=== PATIENT | male | born 1955 | race Caucasian/White ===

== ENCOUNTER 2016-10-12 00:13 | Emergency (ER) | payer OTHER ==
[2016-10-12 01:30] VITALS: BP 129/77; PULSE 73; TEMP 97.9; BMI 29.5
--- NOTE | 2016-10-12 01:30 | PDOC ---
History of Present Illness - General Chief Complaint: Eye Problem Stated Complaint: EYE PROBLEM Time Seen by Provider: 10/12/16 01:29 History Source: Patient Exam Limitations: No Limitations - History of Present Illness Initial Comments: CHIEF COMPLAINT: 61 y/o afebrile male with no significant PMH c/o b/l eye pain and swelling. HISTORY OF PRESENT ILLNESS: He states his eyes are red and burning. He was seen by his doctor yesterday and given erythromycin drops. He states the skin under his eyes is now swollen and painful. He denies all other symptoms including changes in vision. He does wear glasses. Vital signs on arrival are within normal limits. REVIEW OF SYSTEMS: GENERAL/CONSTITUTIONAL: No fever/chills. No weakness. No weight change. HEAD, EYES, EARS, NOSE AND THROAT: No change in vision. +red, itchy, swollen eyes. MUSCULOSKELETAL: No joint or muscle swelling or pain. No neck or back pain. SKIN: No rash or easy bruising. NEUROLOGIC: No headache, vertigo, loss of consciousness, or loss of sensation. PHYSICAL EXAM: GENERAL: The patient is awake, alert, and fully oriented, in no acute distress. HEAD: Normal with no signs of trauma. ENT: Pupils equal, round and reactive to light, extraocular movements intact, sclera anicteric, conjunctiva injected b/l. No pain with EOMs. Well circumscrubed, hard, non fluctuant edematous to b/l infraorbital regions R>L that are TTP. No ptosis or proptosis. NEUROLOGICAL: Normal speech, normal gait. CN II-XII grossly intact. SKIN: Warm, dry, normal turgor, no rashes or lesions noted. Past History - Past Medical History Allergies/Adverse Reactions: Allergies Allergy/AdvReac Type Severity Reaction Status Date / Time No Known Allergies Allergy Verified 10/12/16 01:25 Home Medications: Ambulatory Orders Ibuprofen 600 mg PO QID PRN #30 tablet 04/08/16 - Immunization History Immunization Up to Date: Yes - Psycho/Social/Smoking Cessation Hx Anxiety: No Suicidal Ideation: No Smoking History: Never smoked Have you smoked in the past 12 months: No Number of Cigarettes Smoked Daily: 0 Cigars Per Day: 0 Hx Alcohol Use: No Drug/Substance Use Hx: No Substance Use Type: None *Physical Exam - Vital Signs Last Vital Signs Temp Pulse Resp BP Pulse Ox 97.9 F 73 18 129/77 98 10/12/16 01:25 10/12/16 01:25 10/12/16 01:25 10/12/16 01:25 10/12/16 01:25 Medical Decision Making - Medical Decision Making A/P: 61 y/o afebrile male with conjunctivits and b/l external hordeolums. Encouraged the patient to continue with eye drops as prescribed, apply hot compresses to hordeolums multiple times per day to help with swelling/pain, and f/u with either his eye doctor or Dr. Butler by the end of the week. The patient verbalizes understanding of all instructions, has no further questions and is awaiting discharge. *DC/Admit/Observation/Transfer Diagnosis at time of Disposition: Hordeolum externum (stye) Qualifiers: Eyelid: lower - Discharge Dispostion Disposition: HOME Condition at time of disposition: Good - Referrals Referrals: Sheyla Lombardi MD [Primary Care Provider] - Derrell Butler MD [Staff Physician] - - Patient Instructions Printed Discharge Instructions: DI for Conjunctivitis, DI for Hordeolum Additional Instructions: Discharge instructions: -Continue using the eye drops as prescribed -Apply warm/hot compressed to lower eyelids to help with pain/swelling -Please call your eye doctor (or Dr. Butler) tomorrow to schedule a follow up appointment for this week -Return to the ER with any worsening or concerning symptoms
== END 2016-10-12 02:47 | disposition home or self-care (01) ==
LOC: JER 00:13
DX: H10.33 Unspecified acute conjunctivitis, bilateral (principal); H00.015 Hordeolum externum left lower eyelid; H00.012 Hordeolum externum right lower eyelid
CPT/HCPCS: 99281-25

== ENCOUNTER 2018-07-30 18:09 | Emergency (ER) | payer OTHER ==
[2018-07-30 18:20] VITALS: BP 154/101; PULSE 84; TEMP 98.5; BMI 29.2
--- NOTE | 2018-07-30 19:22 | PDOC ---
History of Present Illness - General Chief Complaint: Pain Stated Complaint: LT LEG PAIN Time Seen by Provider: 07/30/18 19:07 History Source: Patient Exam Limitations: Clinical Condition - History of Present Illness Initial Comments: 07/30/18 19:16 Patient with no significant past medical history present with complaint of pain to left lower back and hip radiating down to left thigh which has been intermittent for 2 weeks now. 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 Patient reported occasional weakness and left leg. Patient denies any injury or fall to back or hip. Timing/Duration: other (2 weeks) Past History - Past Medical History Allergies/Adverse Reactions: Allergies Allergy/AdvReac Type Severity Reaction Status Date / Time No Known Allergies Allergy Verified 07/30/18 18:20 Home Medications: Ambulatory Orders Methocarbamol [Robaxin -] 500 mg PO BID PRN #14 tablet 07/30/18 Naproxen 500 mg PO BID PRN #20 tablet 07/30/18 Omeprazole 20 mg PO DAILY #30 capsule. 07/30/18 COPD: No - Immunization History Immunization Up to Date: Yes - Suicide/Smoking/Psychosocial Hx Smoking History: Never smoked Have you smoked in the past 12 months: No Number of Cigarettes Smoked Daily: 0 Cigars Per Day: 0 Hx Alcohol Use: No Drug/Substance Use Hx: No Substance Use Type: None Review of Systems - Review of Systems Able to Perform ROS?: Yes Is the patient limited [place] proficient: No Constitutional: No: Weakness HEENTM: No: Recent change in vision Respiratory: No: Symptoms reported Cardiac (ROS): No: Symptoms Reported ABD/GI: No: Symptoms Reported Musculoskeletal: Yes: Back Pain (left side), Muscle Pain (left hip going down thigh). No: Muscle Weakness Neurological: No: Numbness, Paresthesia, Tingling All Other Systems: Reviewed and Negative *Physical Exam - Vital Signs Last Vital Signs Temp Pulse Resp BP Pulse Ox 98.5 F 84 18 154/101 H 96 07/30/18 18:18 07/30/18 18:18 07/30/18 18:18 07/30/18 18:18 07/30/18 18:18 - Physical Exam Comments: 07/30/18 19:19 GENERAL: Well developed, well nourished. Awake and alert. No acute distress. CARDIOVASCULAR: Regular rate and rhythm. No murmurs, rubs, or gallops. PULMONARY: No evidence of respiratory distress. Lungs clear to auscultation bilaterally. No wheezing, rales or rhonchi. ABDOMINAL: Soft. Non-tender. Non-distended. No rebound or guarding. No organomegaly. Normoactive bowel sounds MUSCULOSKELETAL : Mild tenderness to left paravertebral over lower sacral spine and posterior left thigh. No bony deformities . Negative straight leg test of left lower extremity. EXTREMITIES: No cyanosis. No clubbing. No edema. No calf tenderness. SKIN: Warm and dry. Normal capillary refill. No rashes. No jaundice. NEUROLOGICAL: Alert, awake, appropriate. No motor deficits in the lower extremities. Gait is normal without ataxia. PSYCHIATRIC: Cooperative. Good eye contact. Appropriate mood and affect. General Appearance: Yes: Nourished, Appropriately Dressed. No: Apparent Distress Moderate Sedation - Procedure Monitoring Vital Signs: Procedure Monitoring Vital Signs Temperature 98.5 F 07/30/18 18:18 Pulse Rate 84 07/30/18 18:18 Respiratory Rate 18 07/30/18 18:18 Blood Pressure 154/101 H 07/30/18 18:18 O2 Sat by Pulse Oximetry (%) 96 07/30/18 18:18 ED Treatment Course - RADIOLOGY Radiology Studies Ordered: Category Date Time Status HIP & PELVIS-LEFT [RAD] Stat Radiology 07/30/18 19:12 Ordered SPINE-LUMBAR SACRAL [RAD] Stat Radiology 07/30/18 19:12 Ordered Medical Decision Making - Medical Decision Making 07/30/18 19:21 Patient with no significant past medical history present with complaint of pain to left lower back and hip radiating down to left thigh which has been intermittent for 2 weeks now Exam significant for Mild tenderness to left paravertebral over lower sacral spine and posterior left thigh. No bony deformities . Negative straight leg test of left lower extremity.X-ray of lumbosacral and left hip ordered. Symptoms likely sciatica. Patient be discharged home on NSAIDs and muscle relaxer with orthopedist follow-up if negative x-ray. 07/30/18 19:21 07/30/18 20:14 X-ray of lumbosacral and left hip and negative for acute fracture or dislocation. Patient is stable for discharge on NSAIDs and muscle relaxer with orthopedics follow-up. Patient requests refill of acid reflux medication *DC/Admit/Observation/Transfer Diagnosis at time of Disposition: Lumbago with sciatica, left side Qualifiers: Chronicity: acute Back pain laterality: left Qualified Code(s): M54.42 - Lumbago with sciatica, left side GERD (gastroesophageal reflux disease) Qualifiers: Esophagitis presence: without esophagitis Qualified Code(s): K21.9 - Gastro- esophageal reflux disease without esophagitis - Discharge Dispostion Disposition: HOME Condition at time of disposition: Stable Decision to Admit order: No - Prescriptions Prescriptions: Methocarbamol [Robaxin -] 500 mg PO BID PRN #14 tablet PRN Reason: hip pain Naproxen 500 mg PO BID PRN #20 tablet PRN Reason: pain Omeprazole 20 mg PO DAILY #30 capsule.dr - Referrals Referrals: Nathan Serrano MD [Staff Physician] - - Patient Instructions Printed Discharge Instructions: DI for Sciatica Additional Instructions: Take medication as prescribed. Apply warm compress to left thigh and lower back area 2-3 times a day for 5-10 minutes as needed. Follow-up referred orthopedics if symptoms persist for more than 4 days. - Post Discharge Activity Forms/Work/School Notes: Back to Work
== END 2018-07-30 20:15 | disposition home or self-care (01) ==
LOC: JERFT 18:09
DX: M54.42 Lumbago with sciatica, left side (principal); K21.9 Gastro-esophageal reflux disease without esophagitis
CPT/HCPCS: 72100-TC-FY; 73523-TC-FY; 99281-25

== ENCOUNTER 2022-12-07 22:49 | Emergency (ER) | payer OTHER ==
[2022-12-07 23:00] VITALS: BP 141/90; PULSE 99; RESP 20; TEMP 98.7; BMI 29.2
== END 2022-12-08 01:48 | disposition home or self-care (01) ==
LOC: JER 22:49
DX: R05.9 Cough, unspecified (principal); J10.1 Influenza due to other identified influenza virus with other respiratory manifestations; R50.9 Fever, unspecified; R07.0 Pain in throat; Z20.822 Contact with and (suspected) exposure to COVID-19
CPT/HCPCS: 0241U-QW; 99283-25